=== PATIENT | male | born 1965 | race Hispanic/Latino ===

== ENCOUNTER 2025-08-16 19:19 | Emergency (ER) | payer SELFPAY ==
[~2025-08-16] VITALS: Ht 167.6 cm; Wt 78.9 kg
--- NOTE | 2025-08-16 19:29 | ERN ---
ED Note History of Present Illness Stated Complaint: FO IN LEFT EYE Chief Complaint: Eye Problems Time Seen by MD: 19:22 Dictation: PATIENT IS A 60-YEAR-OLD MALE HERE WITH COMPLAINTS OF A FOREIGN BODY SENSATION TO HIS LEFT EYE FOR TWO WEEKS. HE STATES HE WAS WORK WHEN HE FELT SOMETHING GOES EYE. HE HAS NOT HAD ANY VISION CHANGES DOES NOT WEAR CONTACT LENSES. STATES HE HAS NOT HAVE A PRIMARY CARE DOCTOR AND THIS IS HIS 1ST ATTEMPT TO SEEK MEDICAL ATTENTION. Allergies: Coded Allergies: No Known Allergies (Unverified Allergy, Unknown, 08/16/25) Past Medical History Past Medical History: No Pertinent History Surgical History: None RN Note Reviewed/Agreed w/PFSH: Yes Review of System Dictation CONSTITUTIONAL: NEGATIVE EXCEPT FOR HPI HEAD/FACE: NEGATIVE EXCEPT FOR HPI EENT: NEGATIVE EXCEPT FOR HPI FOREIGN BODY SENSATION LEFT EYE TWO WEEKS RESPIRATORY: NEGATIVE EXCEPT FOR HPI GASTROINTESTINAL/ABDOMINAL: NEGATIVE EXCEPT FOR HPI GENITOURINARY: NEGATIVE EXCEPT FOR HPI MUSCULOSKELETAL: NEGATIVE EXCEPT FOR HPI INTEGUMENTARY: NEGATIVE EXCEPT FOR HPI NEUROLOGICAL/PSYCH: NEGATIVE EXCEPT FOR HPI HEMATOLOGIC/LYMPHATIC: NEGATIVE EXCEPT FOR HPI ALL SYSTEMS NEGATIVE, EXCEPT NOTED ABOVE. 13 POINT REVIEW OF SYSTEMS ASSESSED AND ALL NEGATIVE EXCEPT FOR ABOVE. Initial Vital Sign VS Vital Signs Date Time Temp Pulse Resp B/P (MAP) Pulse Ox O2 Delivery O2 Flow Rate FiO2 08/16/25 19:23 98.1 87 20 152/89 99 Room Air 08/16/25 19:52 0 21 Physical Exam Dictation VITAL SIGNS REVIEWED GENERAL APPEARANCE: ALERT, ORIENTED X 3, NO ACUTE DISTRESS, WELL DEVELOPED, NOURISHED. HEAD AND FACE: NON-TRAUMATIC. EYES: PERRL, LEFT CONJUNCTIVAL INJECTION EYELID NO TRAUMA, ANTERIOR CHAMBER WITH ARCUS SENILIS. EARS: PINNAS INTACT AND NO SIGNS OF TRAUMA OR ERYTHEMA EAR CANALS CLEAR AND NO DISCHARGE TM NO ERYTHEMA NOSE: NO DISCHARGE, NO BLEEDING. OROPHARYNX: MOUTH NORMAL, TONGUE PINK, PHARYNX CLEAR,NO ERYTHEMA, TONSILS NO EXUDATES, NO ABSCESSES NOTED, MUCOUS MEMBRANE MOIST NECK: SUPPLE, NON-TENDER, NO THYROMEGALY, NO MASSES, NO JVD, NO BRUITS BREAST:DEFERRED CHEST:NO TENDERNESS, NO CREPITUS, NO PARADOXICAL MOVEMENT, NO RETRACTIONS LUNGS:CLEAR, WELL-VENTILATED, SYMMETRIC, NO RALES, NO WHEEZING, NO RHONCHI, NO STRIDOR, GOOD BREATH SOUNDS BILATERALLY HEART: REGULAR RATE, REGULAR RHYTHM, NO MURMUR, NO GALLOPS VASCULAR: NO PERIPHERAL EDEMA, ABDOMEN: SOFT, POSITIVE BOWEL SOUNDS, NONDISTENDED, NO GUARDING, NONTENDER, NO REBOUND, NO MASSES NO HEPATOMEGALY, NO SPLENOMEGALY, NO ZHANG'S SIGN, NO HERNIAS. RECTAL: DEFERRED GENITAL: DEFERRED NEUROLOGICAL: NORMAL SPEECH, MOTOR FUNCTION INTACT, SENSORY FUNCTION INTACT MUSCULOSKELETAL: NECK NONTENDER, FULL RANGE OF MOTION, BACK NONTENDER, FULL RANGE OF MOTION, EXTREMITIES: NONTENDER, FULL RANGE OF MOTION SKIN: COLOR PINK, DRY, NO TURGOR, NO RASH, NO LACERATIONS, NO ABRASIONS, NO CONTUSIONS. LYMPHATIC: DEFERRED Results (Laboratory/Radiology) Labs Reviewed?: Yes ED Course ED Course Orders Procedure Category Date Status Time Visual Acuity Test CPOE 08/16/25 Transmitted (Er) 19:24 Tetracaine Hcl PHA 08/16/25 Complete (Pontocaine 0.5% 19:24 Fluorescein Sodium PHA 08/16/25 Complete (Uplhf-C-Dupoe At) 19:30 Current Medications Medications (Trade) Dose Ordered Sig/Irina Route PRN Reason Start Time Stop Time Status Last Admin Dose Admin Fluorescein Sodium (Wbuwv-D-Zuaoc At) 1 strip ONCE ONCE OP 08/16/25 19:30 08/16/25 19:31 DC 08/16/25 19:41 Tetracaine HCl (Pontocaine 0.5% Ophth Soln) 2 drop ONCE STAT OD 08/16/25 19:24 08/16/25 19:29 DC 08/16/25 19:41 Vital Signs Date Time Temp Pulse Resp B/P (MAP) Pulse Ox O2 Delivery O2 Flow Rate FiO2 08/16/25 19:52 98.1 89 16 150/88 99 Room Air* 0 21 08/16/25 19:23 98.1 87 20 152/89 99 Room Air 2135 PATIENT DISCHARGED HOME AFTER ERYTHROMYCIN OPHTHALMIC OINTMENT WAS APPLIED. CORNEAL ABRASION WAS EXPLAINED TO PATIENT STRONGLY ADVISED HIM TO WEAR PROTECTIVE LENSES WITH WORKING AROUND POWER EQUIPMENT OR OUTSIDE HE WILL BE REFERRED TO [facility] HE IS AWARE HE SHOULD CALL AND MAKE THE APPOINTMENT AND FOLLOW UP Medical Decision Making MDM MEDICAL DECISION-MAKING BASED ON VISUAL ACUITY TEST EYE EXAM WITH TETRACAINE AND FLUORESCEIN PATIENT HAS A LEFT CORNEAL ABRASION ERYTHROMYCIN WAS INSTILLED LEFT EYE PATIENT IS STRONGLY ADVISED TO WEAR PROTECTIVE I COVERAGE WITH WORKING OUTSIDE OR WITH EQUIPMENT REFERRED TO [facility] TO MAKE AN APPOINTMENT AND FOLLOW UP TOMORROW Procedure Procedure Dictation: PROCEDURE EXPLAINED TO PATIENT HE AGREED TO PROCEED TWO DROPS TETRACAINE LEFT EYE FLUORESCEIN STAIN APPLIED EYE EXAMINED WITH UPPER LID EVERTED. SWEEP DONE TO CONJUNCTIVAL SAC WITH MINIMAL DEBRIS PATIENT HAS A CORNEAL ABRASION AT 09:00 VISUAL ACUITY TEST RIGHT 20/50 LEFT TO 20/40 BILATERAL 20/40 UNCORRECTED DX & DISP Disposition: Discharge Departure Impression: Primary Impression: Left corneal abrasion Condition: Stable Scripts Ibuprofen (Ibuprofen 800 mg Tab) 800 Mg Tab 800 MG PO Q8H PRN for fever or pain, #30 TAB 0 Refills Prov: LILIBETH SANTILLAN NP 08/16/25 Erythromycin Base (Erythromycin) 5 Mg/Gram (0.5 %) Oint...g. 1 APPL OP AD for 7 Days, #5 GM 0 Refills APPLY HALF-INCH RIBBON TO LEFT EYE EVERY 4 HOURS WHILE AWAKE FOR THE NEXT SEVEN DAYS. Prov: LILIBETH SANTILLAN NP 08/16/25 Additional Instructions: FOLLOW-UP WITH PRIMARY CARE PROVIDER IN 1 TO 2 DAYS. TAKE MEDICATIONS DIRECTED HERE IN THE EMERGENCY ROOM. OKAY TO CONTINUE HOME MEDICATIONS UNLESS OTHERWISE DISCUSSED DURING YOUR VISIT IN THE EMERGENCY ROOM TODAY. RETURN TO YOUR NEAREST EMERGENCY ROOM IF SYMPTOMS WORSEN OR IF THERE IS NO IMPROVEMENT. CALL 911 IF YOU NEED IMMEDIATE ASSISTANCE. TAKE TYLENOL OR MOTRIN OVE [id number] NEEDED AND IF NO CONTRAINDICATIONS ARE PRESENT. INCREASE ORAL HYDRATION. A WOUND CULTURE OR URINE CULTURE WAS ORDERED HERE IN THE EMERGENCY ROOM DEPARTMENT PLEASE FOLLOW-UP WITH PRIMARY CARE PROVIDER AND ADVISE THEM TO GET REPEAT PORTS FROM OUR FACILITY. IF YOU HAD ANY HECTOR WRAP/SPLINTS THAT WERE APPLIED HERE, PLEASE DO NOT REMOVE THEM UNTIL YOU SEE YOUR PRIMARY CARE OR SPECIALTY. WEAR PROTECTIVE EYE WEAR AT ALL TIMES WHEN WORKING OUTSIDE OR WITH HEAVY MACHINERY. USE ERYTHROMYCIN EYE OINTMENT TO LEFT EYE EVERY 4 HOURS WHILE AWAKE FOR THE NEXT SEVEN DAYS. FOLLOW UP WITH [facility] TOMORROW, CALL FOR AN APPOINTMENT IN [facility]. Referrals: NONE (PCP) Time of Disposition: 21:38 I have reviewed the case, and I agree with, Diagnosis and Plan LILIBETH SANTILLAN NP Aug 16, 2025 19:29
[2025-08-16] MEDS: FLUORESCEIN SODIUM 1 STRIP STRIP OP ONE (19:41)
[2025-08-16] MEDS: TETRACAINE HCL 0.5% 4 ML OPHTH SOLN OD STA (19:41)
[2025-08-16 19:52] VITALS: TEMP 98.1
[2025-08-16] MEDS ORDERED: ERYT1OIN7 OP (21:41)
[2025-08-16] MEDS ORDERED: IBUP-2077 PO (21:41)
[2025-08-16] MEDS: ERYTHROMYCIN BASE 0.5% OPHTH OINT 1 GM TUBE OS STA (21:53)
[2025-08-16 22:00] VITALS: BP 146/80; PULSE 83; RESP 16; O2SAT 99
== END 2025-08-16 21:57 | disposition home or self-care (01) ==
LOC: EDH 19:19
DX: S05.02XA Injury of conjunctiva and corneal abrasion without foreign body, left eye, initial encounter (principal); W18.39XA Other fall on same level, initial encounter; Y93.89 Activity, other specified; Y92.89 Other specified places as the place of occurrence of the external cause; Y99.8 Other external cause status
CPT/HCPCS: 99283

== ENCOUNTER 2025-09-20 15:17 | Emergency (ER) | payer SELFPAY ==
[~2025-09-20] VITALS: Ht 170.2 cm; Wt 72.6 kg
[~2025-09-20 15:17] MED LIST: ERYT1OIN7 OP; IBUP-2077 PO
[2025-09-20] MEDS ORDERED: TETRACAINE HCL 0.5% 4 ML OPHTH SOLN ONE (18:22)
[2025-09-20] MEDS ORDERED: TETRACAINE HCL 0.5% 4 ML OPHTH SOLN OP SCH (18:30)
[2025-09-20] MEDS ORDERED: TOBR5DRO67 OP (18:35)
--- NOTE | 2025-09-20 18:36 | ERN ---
General Chief Complaint: Eye Problems Stated Complaint: EYE Time Seen by MD: 15:19 Time Seen by Midlevel: 15:19 Source: patient History of Present Illness Initial Comments Patient is a 60-year-old male presenting to the emergency department with pain and burning sensation to his left thigh that has been intermittent in nature for two months. Patient has noticed a small growth in his cornea but has been unable to see an route sales specialist. Allergies: Coded Allergies: No Known Allergies (Unverified Allergy, Unknown, 08/16/25) Home Meds Active Scripts Tobramycin/Dexamethasone (Tobradex St Eye Drops) 0.3 %-0.05 % Drops.susp, 1 DROP OP QID, #5 ML 0 Refills Prov:KENIA BURNETT PAC 09/20/25 Ibuprofen (Ibuprofen 800 mg Tab) 800 Mg Tab, 800 MG PO Q8H PRN for fever or pain, #30 TAB 0 Refills Prov:LILIBETH SANTILLANP 08/16/25 Erythromycin Base (Erythromycin) 5 Mg/Gram (0.5 %) Oint...g., 1 APPL OP AD for 7 Days, #5 GM 0 Refills APPLY HALF-INCH RIBBON TO LEFT EYE EVERY 4 HOURS WHILE AWAKE FOR THE NEXT SEVEN DAYS. Prov:LILIBETH SANTILLAN MANAGER EMERGENCY DEPARTMENT 08/16/25 Past Medical History Past Medical History: No Pertinent History Past Surgical History: None ROS Dictation CONSTITUTIONAL: Negative except for HPI HEAD/FACE: Negative except for HPI EENT: Negative except for HPI RESPIRATORY: Negative except for HPI GASTROINTESTINAL/ABDOMINAL: Negative except for HPI GENITOURINARY: Negative except for HPI MUSCULOSKELETAL: Negative except for HPI INTEGUMENTARY: Negative except for HPI NEUROLOGICAL/PSYCH: Negative except for HPI HEMATOLOGIC/LYMPHATIC: Negative except for HPI All Systems Negative, Except as noted above. 13 point review of systems assessed and all negative except for above. Physical Exam Physical Exam Dictation PHYSICAL EXAM: GENERAL: alert,, awake oriented x 3 HEENT: EOMI, Sclera non icteric, moist mucosa, there is a fleshy growth to the medial aspect of the left eye NECK: Supple, no JVD, trachea midline LUNGS: Clear breath sounds bilaterally. No wheezes HEART: Regular rate and rhythm. Normal S1 and S2, without murmurs ABD: Abdomen soft, nontender. Bowel sounds present EXT: No clubbing or cyanosis, NEURO: Alert and oriented to person, follows commands MDM MDM: Differential diagnosis: Pterygium, pingecuela, conjunctivitis There are no social concerns with this patient. Prescription drug management Prescriptions will include:Tobradex Medical management and examination interpretation discussions were had by me with other qualified healthcare professionals as indicated for the patient's care. ED Course Orders Procedure Category Date Status Time Tetracaine Hcl PHA 09/20/25 In Process (Pontocaine 0.5% 18:30 Tetracaine Hcl PHA 09/20/25 Complete (Pontocaine 0.5% 18:22 Current Medications Medications (Trade) Dose Ordered Sig/Irina Route PRN Reason Start Time Stop Time Status Last Admin Dose Admin Tetracaine HCl (Pontocaine 0.5% Ophth Soln) 1 OR 2 DROPS ONCE OP 09/20/25 18:30 10/20/25 18:29 Tetracaine HCl (Pontocaine 0.5% Ophth Soln) 20 drop STK-MED ONCE .ROUTE 09/20/25 18:22 09/20/25 18:22 DC Vital Signs Date Time Temp Pulse Resp B/P (MAP) Pulse Ox O2 Delivery O2 Flow Rate FiO2 09/20/25 15:19 98.8 69 18 142/88 98 Room Air 0 DX & DISP Disposition: Discharge Departure Impression: Primary Impression: Left eye pain Condition: Stable Scripts Tobramycin/Dexamethasone (Tobradex St Eye Drops) 0.3 %-0.05 % Drops.susp 1 DROP OP QID, #5 ML 0 Refills Prov: KENIA BURNETT PAC 09/20/25 Referrals: NONE (PCP) Time of Disposition: 18:33 I have reviewed the case, and I agree with, Diagnosis and Plan I performed the substantive portion of the visit. I have reviewed and personally made and approve the management plan that is documented in the note by myself or the DAVID. I acknowledge for responsibility for the patient's management plan. KENIA BURNETT PAC Sep 20, 2025 18:36
[2025-09-20 18:43] VITALS: BP 135/76; PULSE 71; RESP 18; TEMP 98.6; O2SAT 98
== END 2025-09-20 18:41 | disposition home or self-care (01) ==
LOC: EDH 15:17
DX: H57.12 Ocular pain, left eye (principal)
CPT/HCPCS: 99283